=== PATIENT | male | born 1975 | race Two or more races ===

== ENCOUNTER 2017-04-08 23:36 | Emergency (ER) | payer OTHER ==
[~2017-04-08] VITALS: Ht 175.3 cm; Wt 99.8 kg
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
--- NOTE | 2017-04-08 23:58 | NUR ---
DR. JOHNSTON AT BEDSIDE FOR EVAL.
--- NOTE | 2017-04-09 00:23 | NUR ---
Patient discharged to home in stable condition. Written and verbal after care instructions given. Patient verbalizes understanding of instruction. ambulatory with a steady gait.
[2017-04-09 00:25] VITALS: BP 128/89
== END 2017-04-09 00:28 | disposition home or self-care (01) ==
LOC: ER 23:37
DX: S13.4XXA Sprain of ligaments of cervical spine, initial encounter (principal); M54.5 Low back pain; Z85.841 Personal history of malignant neoplasm of brain; V43.52XA Car driver injured in collision with other type car in traffic accident, initial encounter; Y93.89 Activity, other specified; Y92.89 Other specified places as the place of occurrence of the external cause; Y99.9 Unspecified external cause status
CPT/HCPCS: A4606; Z7610